=== PATIENT | male | born 1935 | race Caucasian/White ===

== ENCOUNTER 2016-09-20 05:58 | Observation (INO) | payer MEDICARE, OTHER ==
--- NOTE | ~2016-09-20 | DS ---
Discharge Summary [facility] [address] [place]. [address] NAME: DANIEL ELIZABETH SR : 35 STATUS : DIS Pam PAT#: [id number] AGE: 81 ADM/REG DATE : 09/20/16 MR#: [id number] REPORT SERV DATE: 09/22/16 DICTATED BY: JR. EGAN WILLIAM JOHN DATE: 09/21/16 REPORT STATUS : Draft TRANSCRIBED BY: MODSara DATE: 09/21/16 ADMISSION DATE: 09/20/2016 DISCHARGE DATE: 09/21/2016 DISCHARGE DIAGNOSES: 1. Gastroenteritis with nausea, vomiting, and diarrhea. 2. Leukocytosis and thrombocytopenia. 3. Ischemic cardiomyopathy, status post bypass graft, status post AICD, status post permanent pacemaker. 4. Hyperlipidemia. 5. Essential hypertension. 6. Splenomegaly. 7. Intermittent chills. OPERATIONS, PROCEDURES, AND TREATMENTS: Include: 1. Chest x-ray done 09/20/2016, which showed stable cardiomegaly with AICD device in place. 2. CT of the abdomen and pelvis done 09/20/2016, which showed pacemaker splenomegaly, hepatic granuloma, small hiatal hernia, heavy atherosclerotic changes, evidence of pacemaker, and evidence of prior intrathoracic surgery. 3. Blood cultures x2 are no growth to date. DISCHARGE MEDICATIONS: 1. Aspirin 325 mg daily. 2. Coreg 3.125 mg twice a day. 3. Vitamin B12 of 500 mcg orally daily. 4. Simvastatin 40 mg orally daily. 5. Multivitamin tablet orally daily. HOSPITAL COURSE: The patient was a pleasant 81-year-old white male, who presented to the emergency room on 09/20/2016 with fevers, chills, abdominal pain, nausea, vomiting, and diarrhea. The patient states he was in his usual state of health until about 11 o'clock in the evening prior when he had sudden onset of nausea, vomiting, diarrhea, and crampy abdominal pain. He also developed shaking chills but did not take his temperature. He then developed dry heaving in the credentials specialist. He called his son who transported him to the hospital. Once in the emergency room, he had not vomited and had no further diarrhea. Initial exam showed a temperature of 99.4, blood pressure 124/65, respiratory rate 20. Exam was unremarkable. CT of the abdomen and pelvis was unremarkable. Chest x-ray was unremarkable except the patient did have findings of splenomegaly. The patient admitted to the Clinical Decision Unit for monitoring. He had no recurrence of any symptoms. Of special note, the patient did have leukocytosis initially with a white blood count of 18.9, later with a white blood count of 14.2. Review of his old lab shows the patient has a chronically elevated white blood count, also has chronic thrombocytopenia in the setting of Discharge Summary [address] [facility] [place] [id number] NAME: DANIEL ELIZABETH SR : 35 STATUS : DIS Pam PAT#: [id number] AGE: 81 ADM/REG DATE : 09/20/16 MR#: [id number] REPORT SERV DATE: 09/22/16 DICTATED BY: JR. EGAN WILLIAM JOHN DATE: 09/21/16 REPORT STATUS : Draft TRANSCRIBED BY: STAN DATE: 09/21/[address] scan. This may prompt outpatient evaluation by Hematology. We will defer to Dr. Brito of primary care. Regarding the patient's ischemic cardiomyopathy, he had serial troponins that were unremarkable, had no other symptoms of acute coronary syndrome. Regarding the patient's intermittent chills, this is difficult to explain medically. Fevers and chills are sometimes accompanied by nausea, vomiting, diarrhea, and abdominal pain. This may warrant outpatient evaluation by Gastroenterology. The patient will be discharged home today 09/21/2016 in good condition. He will follow up with Dr. Brito in two weeks. DISCHARGE DIET: Regular. ACTIVITY: Ad larissa. FOLLOWUP RECOMMENDATIONS: 1. Consider outpatient followup with Gastroenterology. 2. Consider outpatient followup with Hematology regarding chronic leukocytosis and thrombocytopenia. For discharge exam and laboratory, please see daily progress note. WJF/STAN Mao Egan Jr, MD / [id number] CC: Mao Egan Jr, MD Richard Peters, M.D.
--- NOTE | ~2016-09-20 | HP ---
History And Physical [address] [place]. [address] NAME: DANIEL ELIZABETH SR : 35 STATUS : ADM Pam PAT#: [id number] AGE: 81 ADM/REG DATE : 09/20/16 MR#: [id number] REPORT SERV DATE: 09/20/16 DICTATED BY: FEMI TOM DATE: 09/20/16 REPORT STATUS : Draft TRANSCRIBED BY: MODSara DATE: 09/20/16 DATE OF ADMISSION: 09/20/2016 CHIEF COMPLAINT: Multiple. HISTORY OF PRESENT ILLNESS: The patient is a very pleasant 81-year-old white male. He states he was in his usual state of health until about 11 p.m. last night when he developed sudden onset of nausea, vomiting, and diarrhea, and crampy abdominal pain. He had shaking chills, but did not take his temperature. He retched several times to the point where he had dry heaves and this morning in the early hours at about 3:45, he called his son who had him transported to [facility]. He has not vomited since he got here, has not had any further diarrhea. He also had some chest pain during the episode, which has since resolved. He has had no real cough. He has some mild shortness of breath with exertion, which is baseline for him. He did not have any rashes. He has not had any dysuria, has not had any known ill contacts. PAST MEDICAL HISTORY: Positive for: 1. Ischemic cardiomyopathy. The last EF measured was around 50% on the stress test with negative stress testing in November 2015. 2. Status post AICD pacer and subsequent replacement. 3. CAD, status post CABG. 4. Left bundle-branch block. 5. Hyperlipidemia. 6. Hypertension. SOCIAL HISTORY: He is a nonsmoker, nondrinker. He is . His son is at bedside. His is at bedside. FAMILY HISTORY: Positive for CAD in multiple family members who in their 50s. SURGICAL HISTORY: Total knee arthroplasty, cataract surgery, bypass surgery, and an AICD pacer x2. REVIEW OF SYSTEMS: Full 10-point review of systems obtained. Pertinent positives mentioned in the HPI. HOME MEDICATIONS: Reviewed and attached. PHYSICAL EXAMINATION: VITAL SIGNS: BP 124/65, sats 98%, respiratory rate 20, T-max is 99.4. GENERAL: Well-developed white male. HEENT: Normocephalic, atraumatic. Throat is clear. NECK: Supple. HEART: Regular rate and rhythm. LUNGS: Grossly clear. ABDOMEN: Soft, nondistended, nontender. History And Physical [address] [address] NAME: DANIEL ELIZABETH SR : 35 STATUS : ADM Pam PAT#: [id number] AGE: 81 ADM/REG DATE : 09/20/16 MR#: [id number] REPORT SERV DATE: 09/20/16 DICTATED BY: FEMI TOM DATE: 09/20/16 REPORT STATUS : Draft TRANSCRIBED BY: MODSara DATE: 09/20/16 EXTREMITIES: Warm and dry. SKIN: Intact without rash or lesion. EXTREMITIES: Pulses are 2+ at the feet. LABORATORY AND X-RAY DATA: Urinalysis is clear. CT abdomen and pelvis does not show any obvious focus of infection. Sodium 141, potassium 3.4, chloride 102, CO2 of 23, BUN and creatinine 11 and 1.02. Glucose is 98. LFTs are normal. Lipase is normal. Troponin is 0.02. Lactate is 1.3. CBC: White count is 18.9, H and H 13.8 and 39.8, and platelets 128. Coags are normal. Chest x-ray: Stable cardiomegaly and AICD, but no infiltrate. Urinalysis is negative. EKG shows a paced rhythm. ASSESSMENT/PLAN: 1. Nausea, vomiting, and diarrhea with associated chills and probable fever. It sounds like he has possible gastroenteritis. Nothing else has really revealed on his workup including a CT abdomen and pelvis. His urine is clear. His chest x-ray is negative. I think watchful waiting is appropriate. He seems to be a bit better already. I am going to keep him n.p.o. for several hours. If he does not have any further vomiting, we will allow him to have some clear liquids later tonight. We will provide antiemetics p.r.n. and some gentle fluids. We will culture his blood and check a procalcitonin. We will repeat his labs in the morning and go from there. I do not have a clear indication for antibiotics at this point. 2. Leukocytosis, acute on chronic, it was 14.5 back in November. He also has some splenomegaly on his CT. I do not have a baseline CT to compare. The last CBC I have prior to November was back in 2009. His platelet count is slightly low. Certainly, it raises some suspicion of underlying hematological disorder, but I think in light of his presentation, this could certainly be worked up as an outpatient or if his repeat white count is normal, we could likely defer this workup. We will recheck his CBC in the morning and go from there. 3. Ischemic cardiomyopathy. Last ejection fraction measured good at 50%, status post automatic implantable cardioverter-defibrillator and pacer with a history of coronary artery disease with coronary artery bypass graft. He had an episode of chest pain this morning, but it was while vomiting. I am going to do two more sets of enzymes. If they are negative, we would not pursue it further. He had a stress test in November that was negative. 4. History of hyperlipidemia. 5. History of hypertension. Continue Coreg. Hold angiotensin-receptor love for now. 6. Deep venous thrombosis prophylaxis with subcutaneous Lovenox. 7. Disposition, pending above the aforementioned plan and workup. JUNE/STAN Femi Barajas History And Physical [address] [address] NAME: DANIEL ELIZABETH SR : 35 STATUS : ADM Pam PAT#: [id number] AGE: 81 ADM/REG DATE : 09/20/16 MR#: [id number] REPORT SERV DATE: 09/20/16 DICTATED BY: FEMI TOM DATE: 09/20/16 REPORT STATUS : Draft TRANSCRIBED BY: MODL DATE: 09/20/16 Joanie Tom / [id number] CC: Joanie Vazquez M.D.
[~2016-09-20 05:58] MED LIST: ASA5GR PO; COREG3 PO; COZ50 PO; LOP25 PO; MULTIPLE VIT PO; MULTIVITAMI1 PO; PRIN2.5 PO; VITAMIN B-121000 MC1 PO; ZOCOR40 PO
[2016-09-20 06:25] LABS: BASOPHILS 0.2 %; BASOPHILS ABSOLUTE 0.04 10/3/uL (0.0-0.16); EOSINOPHILS 0.8 %; EOSINOPHILS ABSOLUTE 0.15 10/3/uL (0.0-0.53); ER CBC TAT 0 Hrs 07 Mins; HEMATOCRIT 39.8 % (40.0-51.0); HEMOGLOBIN 13.8 g/dL (13.6-17.8); IMMATURE GRANULOCYTES 0.4 %; IMMATURE GRANULOCYTES ABSOLUTE 0.07 10/3/uL (0.0-0.11); LYMPHOCYTES 14.3 %; LYMPHOCYTES ABSOLUTE 2.69 10/3/uL (0.67-4.30); MEAN CORPUS HGB CONC 34.7 g/dL (32.0-36.0); MEAN CORPUSCULAR HEMOGLOB 29.8 pg (26.0-34.0); MEAN PLATELET VOLUME 9.6 fL (9.2-13.0); MONOCYTES 7.9 %; MONOCYTES ABSOLUTE 1.48 10/3/uL (0.21-1.20); NEUTROPHILS 76.4 %; NEUTROPHILS ABSOLUTE 14.42 10/3/uL (2.02-8.40); PLATELET COUNT 128 10/3/uL (150-400); RBC DISTRIBUTION WIDTH 14.8 % (12.0-16.0); RED CELL COUNT 4.63 10/6/uL (4.7-6.1); WHITE BLOOD CELLS 18.9 10/3/uL (4.5-10.5)
[2016-09-20 06:26] LABS: MANUAL DIFF NO %
[2016-09-20 06:33] LABS: INTERNATIONAL NORMAL RATI 1.3 UNITS (-); PROTIME (NOT ORD) 15.6 SEC (12.0-14.5)
[2016-09-20 06:47] LABS: ALBUMIN 3.3 G/DL (3.5-5.0); ALKALINE PHOSPHATASE 79 U/L (45-117); BUN (BLOOD UREA NITROGEN) 11 MG/DL (6-23); CALCIUM, SERUM 8.6 MG/DL (8.5-10.4); CHEST PAIN PROFILE TAT 0 Hrs 29 Mins; CHLORIDE, SERUM 108 MMOL/L (96-112); CO2 (CARBON DIOXIDE) 23 MMOL/L (24-34); CREATININE 1.02 MG/DL (0.70-1.30); DIRECT BILIRUBIN 0.2 MG/DL (0.0-0.4); GFR AFRICAN AMERICAN 80 ML/MIN (>=60); GFR NON AFRICAN AMERICAN 69 ML/MIN (>=60); GLUCOSE, SERUM 98 MG/DL (60-99); INDIRECT BILIRUBIN(NOT ORDER) 0.5 MG/DL (0.1-0.9); POTASSIUM, SERUM 3.4 MMOL/L (3.5-5.3); SGOT(AST) 23 U/L (5-40); SGPT(ALT) 18 U/L (5-65); SODIUM, SERUM 141 MMOL/L (135-148); TOTAL BILIRUBIN 0.7 MG/DL (0-1.2); TOTAL PROTEIN 7.3 G/DL (6.0-8.5); TROPONIN I <0.02 NG/ML (<0.05)
[2016-09-20 06:48] LABS: LACTATE 1.3 MMOL/L (0.3-2.4)
[2016-09-20 06:52] LABS: BAND NEUTROPHILS 17 %; ER DIFF TAT 0 Hrs 34 Mins; IMMATURE GRANS ABSOLUTE (CALC) 0.19 10/3/uL (0.0-0.11); LYMPHOCYTES 9 %; METAMYELOCYTES 1 %; MONOCYTES 5 %; MONOCYTES ABSOLUTE (CALC) 0.95 10/3/uL (0.21-1.20); NEUTROPHILS ABSOLUTE (CALC) 16.07 10/3/uL (2.02-8.40); PLATELET ESTIMATE SLT DEC (ADEQUATE); SEGMENTED NEUTROPHIL (0) 68 %; TOTAL NUCLEATED CELLS 100
[2016-09-20 06:53] LABS: RBC MORPHOLOGY NORM (NORMAL)
[2016-09-20 08:03] LABS: ASCORBIC ACID (UR NOT ORDER) NEG (NEG); BILIRUBIN, URINE NEGATIVE (NEG); KETONE, URINE NEGATIVE (NEG); LEUKOCYTE ESTERASE(NOT OR NEG (NEG); NITRITE (URINE) NEG (NEG); WBC (NOT ORDERED) (RFLEX) 1 (0-5)
[2016-09-20 08:04] LABS: ER URINALYSIS TAT 0 Hrs 37 Mins
[2016-09-20] MEDS ORDERED: COREG3 PO (08:05)
[2016-09-20] MEDS ORDERED: COZ50 PO (08:05)
[2016-09-20] MEDS ORDERED: ASA5GR PO (08:06)
[2016-09-20] MEDS ORDERED: ZOCOR40 PO (08:06)
[2016-09-20] MEDS ORDERED: CENTRUM PO (08:06)
[2016-09-20] MEDS ORDERED: B12100T PO (08:06)
[2016-09-20 14:28] LABS: TROPONIN I 0.03 NG/ML (<0.05)
[2016-09-20 16:13] LABS: PROCALCITONIN 2.18 ng/mL (<0.5)
[2016-09-21 06:15] LABS: BASOPHILS 0.4 %; BASOPHILS ABSOLUTE 0.06 10/3/uL (0.0-0.16); EOSINOPHILS 1.4 %; HEMATOCRIT 36.8 % (40.0-51.0); HEMOGLOBIN 12.3 g/dL (13.6-17.8); IMMATURE GRANULOCYTES 0.2 %; IMMATURE GRANULOCYTES ABSOLUTE 0.03 10/3/uL (0.0-0.11); LYMPHOCYTES 16.5 %; LYMPHOCYTES ABSOLUTE 2.33 10/3/uL (0.67-4.30); MEAN CORPUS HGB CONC 33.4 g/dL (32.0-36.0); MEAN CORPUSCULAR HEMOGLOB 29.6 pg (26.0-34.0); MEAN CORPUSCULAR VOLUME 88.5 fL (80-100); MEAN PLATELET VOLUME 9.5 fL (9.2-13.0); MONOCYTES 9.4 %; MONOCYTES ABSOLUTE 1.33 10/3/uL (0.21-1.20); NEUTROPHILS 72.1 %; NEUTROPHILS ABSOLUTE 10.21 10/3/uL (2.02-8.40); PLATELET COUNT 113 10/3/uL (150-400); RED CELL COUNT 4.16 10/6/uL (4.7-6.1); WHITE BLOOD CELLS 14.2 10/3/uL (4.5-10.5)
[2016-09-21 06:18] LABS: MANUAL DIFF NO %
[2016-09-21 06:32] LABS: BUN (BLOOD UREA NITROGEN) 9 MG/DL (6-23); CALCIUM, SERUM 8.6 MG/DL (8.5-10.4); CHLORIDE, SERUM 106 MMOL/L (96-112); CO2 (CARBON DIOXIDE) 23 MMOL/L (24-34); CREATININE 0.86 MG/DL (0.70-1.30); GFR AFRICAN AMERICAN 94 ML/MIN (>=60); GFR NON AFRICAN AMERICAN 81 ML/MIN (>=60); GLUCOSE, SERUM 110 MG/DL (60-99); SODIUM, SERUM 137 MMOL/L (135-148)
[2016-09-21 06:33] LABS: POTASSIUM, SERUM 4.1 MMOL/L (3.5-5.3)
[2016-09-21 08:31] LABS: TROPONIN I <0.02 NG/ML (<0.05)
== END 2016-09-21 13:58 | disposition home or self-care (01) ==
LOC: ER 05:58 → CDU1 11:48 → CDU2 13:10
PROVIDERS: Internal Medicine; Specialist
DX: R11.2 Nausea with vomiting, unspecified (principal); K52.9 Noninfective gastroenteritis and colitis, unspecified; D69.6 Thrombocytopenia, unspecified; D72.829 Elevated white blood cell count, unspecified; I25.5 Ischemic cardiomyopathy; I25.10 Atherosclerotic heart disease of native coronary artery without angina pectoris; I44.7 Left bundle-branch block, unspecified; E78.00 Pure hypercholesterolemia, unspecified; E78.5 Hyperlipidemia, unspecified; I10 Essential (primary) hypertension; R16.1 Splenomegaly, not elsewhere classified; Z79.82 Long term (current) use of aspirin; Z82.49 Family history of ischemic heart disease and other diseases of the circulatory system; Z95.0 Presence of cardiac pacemaker; Z98.890 Other specified postprocedural states
CPT/HCPCS: 71010; 74176; 80048; 80076; 81001; 83605; 83690; 83735; 84145; 84484; 85025; 85610; 85730; 87040; 93005; 96372; 96374; 99285; A9270-GY; G0378; J2405

== ENCOUNTER 2016-11-13 10:20 | Day surgery (SDC) | payer MEDICARE, OTHER ==
[2016-11-07 14:04] LABS: HEMOGLOBIN 13.9 g/dL (13.6-17.8)
[2016-11-07 14:05] LABS: HEMATOCRIT 41.8 % (40.0-51.0)
[2016-11-07 14:18] LABS: A/G RATIO 1.1 (0.7-1.9); ALBUMIN 3.7 G/DL (3.5-5.0); ALKALINE PHOSPHATASE 86 U/L (45-117); BUN (BLOOD UREA NITROGEN) 12 MG/DL (6-23); CALCIUM, SERUM 9.1 MG/DL (8.5-10.4); CHLORIDE, SERUM 108 MMOL/L (96-112); CREATININE 0.93 MG/DL (0.70-1.30); GFR AFRICAN AMERICAN 89 ML/MIN (>=60); GFR NON AFRICAN AMERICAN 77 ML/MIN (>=60); GLOBULIN 3.5 G/DL (2.5-4.1); GLUCOSE, SERUM 101 MG/DL (60-99); SGOT(AST) 21 U/L (5-40); SGPT(ALT) 19 U/L (5-65); SODIUM, SERUM 142 MMOL/L (135-148); TOTAL BILIRUBIN 0.6 MG/DL (0-1.2); TOTAL PROTEIN 7.2 G/DL (6.0-8.5)
[2016-11-07 14:19] LABS: CO2 (CARBON DIOXIDE) 29 MMOL/L (24-34)
--- NOTE | ~2016-11-13 | OP ---
Record Of Operation [facility] [address] [place]. [address] NAME: DANIEL ELIZABETH SR : 35 STATUS : [facility]#: [id number] AGE: 81 ADM/REG DATE : 11/13/16 MR#: [id number] REPORT SERV DATE: 11/13/16 DICTATED BY: ALFRED DAVIDSON DATE: 11/13/16 REPORT STATUS : Draft TRANSCRIBED BY: MODL DATE: 11/13/16 DATE OF PROCEDURE: 11/13/2016 PREOPERATIVE DIAGNOSIS: Cholecystitis. POSTOPERATIVE DIAGNOSIS: Cholecystitis. PROCEDURE: Laparoscopic cholecystectomy (two site). SURGEON: Alfred Davidson M.D. DESCRIPTION OF OPERATIVE PROCEDURE: The patient was brought to the operating suite, placed in supine position, underwent satisfactory general endotracheal anesthesia without incident. The skin of the abdomen was scrubbed, prepped, and draped in usual sterile fashion. 0.5% Marcaine with epinephrine was utilized as supplemental local anesthesia. Initially, an infraumbilical incision was performed dissecting through the skin and subcutaneous tissue to the umbilical fascia. This was in turn grasped with a Tayo and elevated, and a disposable Veress insufflation needle was inserted through the umbilical fascia into the peritoneal cavity. Intraperitoneal tip location ascertained using the saline hanging drop method. CO2 insufflated for pressures of 15 mmHg throughout the case. After adequate insufflation pressure achieved, Veress needle was removed, disposable bladed/shielded 11 mm trocar inserted through the umbilical fascia into the peritoneal cavity, following which a rigid forward-viewing 10 mm laparoscope was inserted. Visualization of the intraabdominal parietes revealed no evidence of injury from initial insufflation or puncture. Cursory examination of the pelvis was normal. Attention was turned to the upper abdomen, where an additional 5 mm trocar was placed to the right of falciform ligament. An additional 5 mm grasping instrument inserted through the umbilical fascia next to the umbilical trocar. The gallbladder was densely adherent to surrounding fiber fatty omental adhesions covering the leading edge of the liver and the dome and fundus of the gallbladder. Initially, these adhesions were taken down until I could see a portion of the gallbladder wall, which was then grasped and elevated, and then tedious dissection was utilized to clean the adhesions off the gallbladder. Dissection of triangle of Calot was successful in identifying and skeletonizing the cystic duct, cystic duct common duct junction as well as the cystic artery. Both of these structures were controlled with multiple applications of the Weck 5 mm polymer clip system and divided. Then using spatula cautery dissection, the peritoneal attachments to the gallbladder and liver were divided and the gallbladder was removed from subhepatic space. Hemostasis was assured. Small enterotomy was created in the gallbladder wall, was controlled, and then irrigation and aspiration of any bile was performed. Next, the camera was switched to the 5 mm epigastric port. The gallbladder was placed inside an Endo retrieval pouch and removed through the umbilicus. It was opened and found Record Of Operation [id number] [place]. [address] NAME: DANIEL ELIZABETH : 35 STATUS : [facility]#: [id number] AGE: 81 ADM/REG DATE : 11/13/16 MR#: [id number] REPORT SERV DATE: 11/13/16 DICTATED BY: ALFRED DAVIDSON DATE: 11/13/16 REPORT STATUS : Draft TRANSCRIBED BY: MODL DATE: 11/13/16 to contain no stones. CO2 was allowed to egress from peritoneal cavity. No muscular bleeding was noted. The umbilicus was closed with [id number] suture of 0 Vicryl, subcutaneous tissue closed with interrupted 4-0 Vicryl running subcuticular stitch, and 4-0 Vicryl for the skin. Dermabond skin adhesive placed. The patient tolerated the procedure. Was returned to PACU in stable condition. At the termination of the procedure, sponge, needle, lap, and instrument counts were correct x3. ESTIMATED BLOOD LOSS: Less than 10 to 15 mL. [place]/STAN Alfred Davidson M.D. / [id number] CC: Joanie Naqvi M.D.
[~2016-11-13 10:20] MED LIST changes: +B12100T PO; +CENTRUM PO
== END 2016-11-13 20:13 | disposition home or self-care (01) ==
LOC: SDC 10:20
PROVIDERS: Specialist
PROC: 0FT44ZZ Resection of Gallbladder, Percutaneous Endoscopic Approach (ICD-10-PCS; principal; 2016-11-13 12:15)
DX: K81.1 Chronic cholecystitis (principal); I25.10 Atherosclerotic heart disease of native coronary artery without angina pectoris; I25.5 Ischemic cardiomyopathy; Z95.810 Presence of automatic (implantable) cardiac defibrillator; I10 Essential (primary) hypertension; Z95.1 Presence of aortocoronary bypass graft; E78.5 Hyperlipidemia, unspecified; Z79.82 Long term (current) use of aspirin; Z79.899 Other long term (current) drug therapy
CPT/HCPCS: 36415; 80053; 85014; 85018; 88304; 93005; J0690; J1170; J1885; J2250; J2370; J2405; J2710; J3010; Q9967